=== PATIENT | female | born 1970 | race Hispanic/Latino ===

== ENCOUNTER 2016-12-23 11:07 | Emergency (ER) | payer OTHER ==
[2016-12-23] MEDS ORDERED: Lidocaine 4% Cream 5 GM TUBE w/ Tegaderm ONE (11:21)
[2016-12-23] MEDS ORDERED: HYDROcodone/Acetaminophen 7.5/325 mg Tablet ONE (11:21)
== END 2016-12-23 12:19 | disposition home or self-care (01) ==
LOC: SCSER 11:07
DX: L02.11 Cutaneous abscess of neck (principal); E78.5 Hyperlipidemia, unspecified; J45.909 Unspecified asthma, uncomplicated; E11.9 Type 2 diabetes mellitus without complications; I10 Essential (primary) hypertension; F41.9 Anxiety disorder, unspecified; F17.200 Nicotine dependence, unspecified, uncomplicated
CPT/HCPCS: 10060

== ENCOUNTER 2016-12-25 07:58 | Emergency (ER) | payer OTHER, SELFPAY | END 2016-12-25 08:10 | disposition home or self-care (01) | LOC: SCSER 07:58 | DX: L02.11 Cutaneous abscess of neck (principal); E78.5 Hyperlipidemia, unspecified; J45.909 Unspecified asthma, uncomplicated; E11.9 Type 2 diabetes mellitus without complications; I10 Essential (primary) hypertension; F41.9 Anxiety disorder, unspecified; F17.200 Nicotine dependence, unspecified, uncomplicated; Z79.84 Long term (current) use of oral hypoglycemic drugs; Z79.899 Other long term (current) drug therapy | CPT/HCPCS: 99282 ==

== ENCOUNTER 2017-02-02 18:35 | Emergency (ER) | payer SELFPAY ==
[2017-02-02] MEDS ORDERED: Ondansetron HCl/PF 4 MG/2 ML Vial ONE (19:19)
[2017-02-02] MEDS ORDERED: Morphine 4 MG/ML Carpuject ONE (19:19)
[2017-02-02 19:26] LABS: #Basophils 0.1 thou/uL (0.0-0.2); #Eosinphils 0.3 thou/uL (0.0-0.7); #Lymphocytes 2.5 thou/uL (1.20-3.40); #Monocytes 0.6 thou/uL (0.11-0.59); #Neutrophils 5.7 thou/uL (1.40-6.50); %Basophils 0.8 % (0.0-1.0); %Eosinophils 3.1 % (0.0-10.0); %Lymphocytes 27.2 % (21.0-51.0); %Monocytes 6.7 % (0.0-10.0); Hematocrit 43.1 % (36.0-47.0); Mean Platelet Volume 9.3 fL (7.4-10.4); Red Blood Cell (RBC) Count 5.17 mill/uL (4.20-5.40); White Blood Cell (WBC) Count 9.2 thou/uL (4.8-10.8)
[2017-02-02 19:40] LABS: Anion Gap 16 mmol/L (10-20); BUN (Urea Nitrogen) 14 mg/dL (7.0-18.7); Calc. Creatinine Clearance 0 mL/min (70-130); Calcium 8.9 mg/dL (7.8-10.44); Carbon Dioxide 22 mmol/L (22-29); Chloride 98 mmol/L (98-107); Estimated GFR-MDRD 66
[2017-02-02] MEDS ORDERED: Ketorolac Tromethamine 30 MG/ML VIAL ONE (20:16)
[2017-02-02] MEDS ORDERED: Bacitracin Zinc 1 Packet ONE (20:35)
== END 2017-02-02 20:47 | disposition home or self-care (01) ==
LOC: SCSER 18:35
DX: G89.18 Other acute postprocedural pain (principal); E11.65 Type 2 diabetes mellitus with hyperglycemia; I10 Essential (primary) hypertension; E78.5 Hyperlipidemia, unspecified; J45.909 Unspecified asthma, uncomplicated; F41.9 Anxiety disorder, unspecified; F17.200 Nicotine dependence, unspecified, uncomplicated; Z79.84 Long term (current) use of oral hypoglycemic drugs; Z79.899 Other long term (current) drug therapy
CPT/HCPCS: 36415; 80048; 85025; 96361; 96374; 96375; J1885; J2270; J2405

== ENCOUNTER 2017-03-08 08:41 | Emergency (ER) | payer SELFPAY ==
[2017-03-08] MEDS ORDERED: cloNIDine 0.1 MG TAB ONE (08:59)
[2017-03-08 09:28] LABS: #Basophils 0.1 thou/uL (0.0-0.2); #Eosinphils 0.3 thou/uL (0.0-0.7); #Lymphocytes 2.4 thou/uL (1.20-3.40); #Monocytes 0.6 thou/uL (0.11-0.59); #Neutrophils 5.1 thou/uL (1.40-6.50); %Basophils 1.3 % (0.0-1.0); %Eosinophils 3.6 % (0.0-10.0); %Lymphocytes 28.5 % (21.0-51.0); %Monocytes 6.8 % (0.0-10.0); %Neutrophils 59.8 % (42.0-75.0); Hemoglobin 14.6 g/dL (12.0-16.0); Mean Corpuscular HGB CONC 31.5 g/dL (32.0-36.0); Mean Corpuscular Hemoglobin 26.6 pg (27.0-31.0); Mean Corpuscular Volume 84.5 fl (81.0-99.0); Mean Platelet Volume 10.8 fL (7.4-10.4); Platelet Count 201 thou/uL (130-400); RBC Distribution Width 14.1 % (11.5-14.5); Red Blood Cell (RBC) Count 5.47 mill/uL (4.20-5.40); White Blood Cell (WBC) Count 8.5 thou/uL (4.8-10.8)
[2017-03-08 09:35] LABS: Anion Gap 17 mmol/L (10-20); BUN (Urea Nitrogen) 13 mg/dL (7.0-18.7); Calc. Creatinine Clearance 0 mL/min (70-130); Calcium 9.8 mg/dL (7.8-10.44); Carbon Dioxide 21 mmol/L (22-29); Chloride 103 mmol/L (98-107); Estimated GFR-MDRD 78; Glucose 353 mg/dL (70-105); Sodium 137 mmol/L (136-145)
[2017-03-08] MEDS ORDERED: Sulfameth/Trimethoprim DS 800-160mg TAB ONE (11:14)
[2017-03-08] MEDS ORDERED: Lisinopril 10 MG TAB ONE (12:15)
== END 2017-03-08 12:21 | disposition home or self-care (01) ==
LOC: SCSER 08:41
DX: L02.11 Cutaneous abscess of neck (principal); E11.9 Type 2 diabetes mellitus without complications; I10 Essential (primary) hypertension; Z91.19 Patient's noncompliance with other medical treatment and regimen; E78.5 Hyperlipidemia, unspecified; F31.9 Bipolar disorder, unspecified; F41.9 Anxiety disorder, unspecified; J45.909 Unspecified asthma, uncomplicated; Z79.899 Other long term (current) drug therapy
CPT/HCPCS: 10060; 36416; 80048; 82010; 85025; 96360; 96361

== ENCOUNTER 2017-06-17 10:14 | Outpatient (CLI) | payer OTHER, SELFPAY ==
--- NOTE | 2017-06-19 11:53 | MMO ---
BILATERAL DIGITAL SCREENING MAMMOGRAMS: History: 47-year-old female presents for digital screening mammography. Comparison: 12-13-13, 08-06-12 This study is interpreted with the assistance of computer aided detection. FINDINGS: Scattered fibroglandular changes are noted bilaterally. No direct or indirect evidence of malignancy. Occasional typically benign calcifications. IMPRESSION: BIRADS category II - benign findings. Continue routine screening. POS: [facility]
== END 2017-06-17 10:15 | disposition home or self-care (01) ==
LOC: SCSMAMMO 10:14
PROVIDERS: ATTEND Family Medicine
DX: Z00.00 Encounter for general adult medical examination without abnormal findings (principal)
CPT/HCPCS: 77067

== ENCOUNTER 2018-04-11 08:33 | Emergency (ER) | payer SELFPAY ==
[2018-04-11] MEDS ORDERED: Ketorolac Tromethamine 30 MG/ML VIAL ONE (08:45)
== END 2018-04-11 09:10 | disposition home or self-care (01) ==
LOC: SCSER 08:33
DX: S46.911A Strain of unspecified muscle, fascia and tendon at shoulder and upper arm level, right arm, initial encounter (principal); E11.9 Type 2 diabetes mellitus without complications; F31.9 Bipolar disorder, unspecified; I10 Essential (primary) hypertension; F41.9 Anxiety disorder, unspecified; Z79.84 Long term (current) use of oral hypoglycemic drugs; Z79.899 Other long term (current) drug therapy; X58.XXXA Exposure to other specified factors, initial encounter
CPT/HCPCS: 96372; J1885